=== PATIENT | female | born 1985 | race Caucasian/White ===

== ENCOUNTER 2022-03-17 15:27 | Outpatient (CLI) | payer OTHER ==
[2022-03-17 16:46] VITALS: BP 140/73; PULSE 94; RESP 18; TEMP 97.8
--- NOTE | 2022-04-10 11:23 | P.MSEPDOC ---
Presenting Problems - Arrival Data Date of Arrival on Unit: 03/17/22 Time of Arrival on Unit: 15:27 Mode of Transport: Ambulatory - Complaint OB-Reason for Admission/Chief Complaint: Rule Out PROM Comment: pt sent over from office to rule out PSROM. PT states, " I had a gush around 0445 this morning. Like i was peeing myself." PT reports fluid was clear. Medical History - Information : 4 Para: 3 Term: 3 : 0 Abortions: Spontaneous or Elective: 0 Number of Living Children: 3 - Gestational Age Gestational Age by JOSEE (wks/days): 34 Weeks and 2 Days Review of Systems - Review of Systems Constitutional: No problems Breast: No problems ENT: No problems Cardiovascular: No problems Respiratory: No problems Gastrointestinal: No problems Genitourinary: No problems Musculoskeletal: No problems Neurological: No problems Skin: No problems Vital Signs - Temperature Temperature: 97.8 F Temperature Source: Temporal Artery Scan - Pulse Right Pulse Rate: 94 Pulse Assessment Method: Pulse Oximetry - Respirations Respiratory Rate: 18 Oxygen Delivery Method: Room Air O2 Sat by Pulse Oximetry: 98 - Blood Pressure Right Arm Blood Pressure: 140/73 Blood Pressure Mean: 95 Blood Pressure Source: Automatic Cuff Medical Screen Scoring - Cervical Exam Membranes: Intact - Assessment - Baby A Baseline FHR: 135 Heart Rate - NICHD Category: Category I (Normal) NST: Reactive Physician Notification - Physician Notified Physician Notified Date: 03/17/22 Physician Notified Time: 16:23 Physician: Mario Alberto Benson New Order Received: Yes (discharge home.) Maternal Triage Index - Maternal Triage Index Presenting for scheduled procedure w/no complaint: No - Stat/Priority 1 Stat Priority 1: No - Urgent/Priority 2 Urgent Priority 2: Yes Provider Notified: Mario Alberto Benson Provider Notified Time: 16:23 Criteria Met for Priority 2: PT in office and reported experiencing a gush of fluid around 0445 this morning. Sent over from office to rule out PSROM. Disposition - Disposition OB Disposition: Discharge to home Discharge Date: 03/17/22 Discharge Time: 16:28 I agree with the RN Medical Screening Exam: Yes Physician's MSE Comment: I have neither seen nor examined the patient. Case reviewed; plan agreed upon as documented in EMR&OBIX.: Yes Diagnosis: RELATED CONDITIONS, UNSPECIFIED, THIRD TRIMESTER
== END 2022-03-17 16:28 | disposition home or self-care (01) ==
LOC: FBPOP 15:27
PROVIDERS: ATTEND Obstetrics & Gynecology
DX: O26.893 Other specified pregnancy related conditions, third trimester (principal); Z3A.34 34 weeks gestation of pregnancy; F17.200 Nicotine dependence, unspecified, uncomplicated; O99.333 Smoking (tobacco) complicating pregnancy, third trimester; Z88.0 Allergy status to penicillin; Z88.1 Allergy status to other antibiotic agents
CPT/HCPCS: 59025; 84112; 99213

== ENCOUNTER 2022-03-31 23:55 | Outpatient (CLI) | payer OTHER ==
[2022-04-01 01:04] LABS: Appearance,Urine Cloudy (Clear); Bacteria,Urine Occasional /hpf; Bilirubin,Urine Negative (Negative); Blood,Urine Negative (Negative); Color,Urine Light Yellow; Glucose,Urine (UA) Negative (Negative); Ketones,Urine Negative (Negative); Leukocyte Esterase,Urine Large (Negative); Mucus,Urine Rare /hpf; Nitrite,Urine Negative (Negative); Protein,Urine 1+ (Negative); Protein/Creatinine Ratio,Urine 1.333; RBC,Urine <1 /hpf (0-5); Squamous Epithelial Cell,Urine 7 /hpf (0-4); Urobilinogen,Urine <2.0 mg/dL (<2.0); WBC,Urine 3 /hpf (0-5)
[2022-04-01 01:41] LABS: Basophils # (A) 0.1 k/uL (0-0.2); Basophils % (A) 1 %; Eosinophils # (A) 0.2 k/uL (0-0.7); Eosinophils % (A) 1 %; HCT 34.6 % (34.0-46.0); HGB 12.1 gm/dL (11.4-16.0); Lymphocytes # (A) 2.3 k/uL (1.0-4.8); Lymphocytes % (A) 12 %; MCH 30.4 pg (25.0-35.0); Mean Platelet Volume 10.7; Monocytes % (A) 5 %; Neutrophils # (A) 14.7 k/uL (1.3-7.7); Neutrophils % (A) 79 %; Platelet Count 232 k/uL (150-450); RBC 3.98 m/uL (3.80-5.40); WBC 18.6 k/uL (3.8-10.6)
[2022-04-01 01:52] LABS: ALT 18 U/L (4-34); AST 22 U/L (14-36); African American GFR (CKD) >90 (>60 ml/min/1.73 sqM); Blood Urea Nitrogen 10 mg/dL (7-17); LDH 454 U/L (313-618); Non-African American GFR(CKD) >90 (>60 ml/min/1.73 sqM); Uric Acid 5.5 mg/dL (3.7-7.4)
[2022-04-01 02:35] VITALS: BP 176/78; PULSE 83; RESP 18; TEMP 97.5
--- NOTE | 2022-04-10 11:32 | P.MSEPDOC ---
Presenting Problems - Arrival Data Date of Arrival on Unit: 03/31/22 Time of Arrival on Unit: 23:55 Mode of Transport: Ambulatory - Complaint OB-Reason for Admission/Chief Complaint: PIH Medical History - Information : 4 Para: 3 Term: 3 : 0 Abortions: Spontaneous or Elective: 0 Number of Living Children: 3 - Gestational Age Gestational Age by JOSEE (wks/days): 36 Weeks and 3 Days - History Complications: GDM Comment: GDM-DIET CONTROLLED. Review of Systems - Review of Systems Constitutional: No problems Breast: No problems ENT: No problems Cardiovascular: No problems Respiratory: No problems Gastrointestinal: No problems Genitourinary: No problems Musculoskeletal: No problems Neurological: No problems Skin: No problems Vital Signs - Temperature Temperature: 97.5 F Temperature Source: Tympanic - Pulse Right Brachial Pulse Rate: 83 Pulse Assessment Method: Automatic Cuff - Respirations Respiratory Rate: 18 Oxygen Delivery Method: Room Air O2 Sat by Pulse Oximetry: 100 - Blood Pressure Right Arm Blood Pressure: 176/78 Blood Pressure Mean: 110 Blood Pressure Source: Automatic Cuff Medical Screen Scoring - Assessment - Baby A Baseline FHR: 140 Heart Rate - NICHD Category: Category I (Normal) NST: Reactive Physician Notification - Physician Notified Physician Notified Date: 04/01/22 Physician Notified Time: 00:40 Physician: Mario Alberto Benson New Order Received: Yes - Notification Comment Comment: Dr. Benson given report on pt. aware of pt c/o and hx. BPs readback. Cat. 1 fht, contractions irregular but not felt per pt. Bilateral ankle swelling noted 1+. pitting, bilat reflexes 1+, clonus absent. Pt c/o of h/a and right upper quadrant pain. Orders recieved to obtain [facility] labs and to call with results.Dr. Benson called and given update on pt. All lab results readback. BPs results readback. NST reactive. Orders recieved to d/c pt to home. Maternal Triage Index - Urgent/Priority 2 Urgent Priority 2: Yes Provider Notified: Mario Alberto Benson Provider Notified Time: 00:40 Criteria Met for Priority 2: Elevated BPs, increase in swelling, h/a. Disposition - Disposition OB Disposition: Discharge to home Discharge Date: 04/01/22 Discharge Time: 02:20 I agree with the RN Medical Screening Exam: Yes Case reviewed; plan agreed upon as documented in EMR&OBIX.: Yes Diagnosis: RELATED CONDITIONS, UNSPECIFIED, THIRD TRIMESTER
== END 2022-04-01 02:20 | disposition home or self-care (01) ==
LOC: FBPOP 23:55
PROVIDERS: ATTEND Obstetrics & Gynecology
DX: O26.93 Pregnancy related conditions, unspecified, third trimester (principal); O99.333 Smoking (tobacco) complicating pregnancy, third trimester; Z88.1 Allergy status to other antibiotic agents; Z88.0 Allergy status to penicillin; F17.200 Nicotine dependence, unspecified, uncomplicated; Z3A.36 36 weeks gestation of pregnancy
CPT/HCPCS: 59025; 81001; 82565; 82570; 83615; 84156; 84450; 84460; 84520; 84550; 85025; 99215

== ENCOUNTER 2022-04-08 11:50 | Inpatient (IN) | payer BC, OTHER ==
[2022-04-08 12:43] LABS: Glucose,Whole Blood 152 mg/dL (70-110)
[2022-04-08] MEDS ORDERED: CITRIC ACID-SODIUM CITRATE 15 ML CUP PO ONE (12:52)
[2022-04-08 13:29] LABS: Anisocytosis Slight; Basophils # (A) 0.1 k/uL (0-0.2); Basophils % (A) 0 %; Eosinophils # (A) 0.2 k/uL (0-0.7); Eosinophils % (A) 1 %; HCT 35.7 % (34.0-46.0); HGB 12.2 gm/dL (11.4-16.0); Lymphocytes # (A) 1.7 k/uL (1.0-4.8); Lymphocytes % (A) 11 %; MCH 29.8 pg (25.0-35.0); MCHC 34.1 g/dL (31.0-37.0); MCV 87.6 fL (80.0-100.0); Mean Platelet Volume 10.6; Monocytes # (A) 0.7 k/uL (0-1.0); Monocytes % (A) 5 %; Neutrophils % (A) 82 %; Platelet Count 245 k/uL (150-450); RBC 4.08 m/uL (3.80-5.40); WBC 15.8 k/uL (3.8-10.6)
[2022-04-08] MEDS: LACTATED RINGERS 1,000 ML IV SCH (13:56)
[2022-04-08 15:50] LABS: Glucose,Whole Blood 83 mg/dL (70-110)
--- NOTE | 2022-04-08 16:14 | P.HPOB ---
History of Present Illness H&P Date: 04/08/22 Chief Complaint: 37-3/7 weeks, previous section x3, spontaneous rupture the patient is a 36-year-old 4 para 3003 admitted at 37-3/7 weeks as established by 10 week ultrasound with documented spontaneous rupture of membranes. She carries a history of 3 previous sections and has requested repeat with tubal ligation having signed consent to that effect in the office. She additionally was diagnosed with gestational diabetes which was reportedly controlled well with diet. She falls into the category of advanced maternal age and declined trisomy testing. She additionally has been found to be rubella nonimmune and will receive the MMR vaccination . She did have reassuring testing on a weekly basis after 32 weeks during . Group B strep status is negative. On labor and delivery, all signs reassuring with a category 1 heart rate tracing. Obstetrical history: 4 para 3003 with 3 term sections. Current statistics are listed in history present illness. EDC of 04/26/2022 was established by a 10 week ultrasound.laboratory workup demonstrates a blood type of O+ with a negative antibody screen. Rubella status is nonimmune. The remainder of the laboratory workup was within normal limits. As the patient had late care, she did not have an early Glucola. Her second trimester Glucola was elevated and followed up by an abnormal three-hour glucose tolerance test. Group B strep status is negative. Gynecologic history: Unremarkable with no history of any infections to include STDs. Review of Systems review of systems is confined to history of present illness. Past Medical History Past Medical History: No Reported History History of Any Multi-Drug Resistant Organisms: None Reported Past Surgical History: Section, Ear Surgery Additional Past Surgical History / Comment(s): left ear surgery, Past Anesthesia/Blood Transfusion Reactions: No Reported Reaction Past Psychological History: No Psychological Hx Reported Smoking Status: Current every day smoker Past Alcohol Use History: None Reported Past Drug Use History: None Reported - Past Family History Father Family Medical History: No Reported History Medications and Allergies Home Medications Medication Instructions Recorded Confirmed Type Cetirizine HCl [Zyrtec] 10 mg PO DAILY 03/17/22 04/08/22 History Ferrous Sulfate [Iron] 325 mg PO DAILY 03/17/22 04/08/22 History Pnv 11/Iron Fum/Folic Acid/Om3 1 each PO DAILY 03/17/22 04/08/22 History [Virt-Fernando Dha Softgel] Allergies Allergy/AdvReac Type Severity Reaction Status Date / Time amoxicillin AdvReac Itching Verified 04/08/22 12:37 Penicillins AdvReac Itching Verified 04/08/22 12:37 Exam Vital Signs Temp Pulse Resp BP Pulse Ox 04/08/22 13:21 97.6 F 83 20 130/73 98 04/08/22 12:21 97.8 F 101 H 18 136/79 98 Intake and Output 04/08/22 04/08/22 04/08/22 06:59 14:59 22:59 Other: # Voids 1 Weight 104.326 kg in general, this is a well-developed, moderately obese white female in no acute distress. Her heart has a regular rhythm and rate without murmur. Her lungs are clear to auscultation bilaterally in all cervantes. Her abdomen is gravid, nondistended, has normal active bowel sounds, soft, nontender, and without any palpable masses aside from uterine fundus. Her extremities are without any cyanosis, clubbing, or significant edema and are nontender to palpation bilaterally. Digital cervical examination is deferred. Results Result Diagrams: 04/08/22 13:20 Abnormal Lab Results - Last 24 Hours (Table) 04/08/22 04/08/22 Range/Units 12:42 13:20 WBC 15.8 H (3.8-10.6) k/uL RDW 16.0 H (11.5-15.5) % Neutrophils # 13.0 H (1.3-7.7) k/uL POC Glucose (mg/dL) 152 H (70-110) mg/dL Assessment and Plan (1) 37 or more weeks gestation of Current Visit: Yes Status: Acute Code(s): FXB6411 - SNOMED Code(s): 90718129 (2) Previous section Current Visit: Yes Status: Acute Code(s): Z98.891 - HISTORY OF UTERINE SCAR FROM PREVIOUS SURGERY SNOMED Code(s): 269205822 (3) Gestational diabetes Current Visit: Yes Status: Acute Code(s): O24.419 - GESTATIONAL DIABETES MELLITUS IN , UNSP CONTROL SNOMED Code(s): 50893829 (4) Family planning Current Visit: Yes Status: Acute Code(s): Z30.09 - ENCOUNTER FOR OTH GENERAL CNSL AND ADVICE ON CONTRACEPTION SNOMED Code(s): 523567049 Plan: the patient is admitted for repeat low transverse section with intraoperative bilateral tubal occlusion using Filshie clips. The risks and co mplications of these procedures of been thoroughly discussed and she has understood and agreed to proceed.
[2022-04-08] MEDS ORDERED: OXYTOCIN 30 UNITS/500 ML NS BAG IV ONE (16:18)
[2022-04-08] MEDS ORDERED: MORPHINE SULFATE (PF) 0.3 MG/0.3 ML SYR ONE (16:18)
[2022-04-08] MEDS ORDERED: ONDANSETRON 4 MG/2 ML VIAL ONE (16:18)
[2022-04-08] MEDS ORDERED: ePHEDrine 50 MG/ML 1 ML VIAL ONE (16:18)
[2022-04-08] MEDS ORDERED: NALBUPHINE 10 MG/ML (1 ML AMP) ONE (16:18)
[2022-04-08] MEDS ORDERED: KETOROLAC 15 MG/ML 1 ML VIAL ONE (16:18)
[2022-04-08] MEDS ORDERED: NALOXONE 0.4 MG/ML 1 ML VIAL IV PRN (17:20)
[2022-04-08] MEDS ORDERED: ZOLPIDEM 5 MG TAB PO PRN (17:20)
[2022-04-08] MEDS ORDERED: LANOLIN CREAM 5 GM TUBE TOPICAL PRN (17:20)
[2022-04-08] MEDS ORDERED: METOCLOPRAMIDE 5 MG/ML 2 ML VIAL IVP PRN (17:20)
[2022-04-08] MEDS ORDERED: ONDANSETRON 4 MG/2 ML VIAL IVP PRN (17:20)
[2022-04-08] MEDS ORDERED: KETOROLAC 15 MG/ML 1 ML VIAL IVP PRN (17:20)
[2022-04-08] MEDS ORDERED: diphenhydrAMINE 25 MG CAP PO PRN (17:20)
[2022-04-08] MEDS ORDERED: diphenhydrAMINE 50 MG/ML 1 ML VIAL IVP PRN ×2 (17:20)
[2022-04-08] MEDS ORDERED: diphenhydrAMINE 50 MG CAP PO PRN (17:20)
[2022-04-08] MEDS ORDERED: SIMETHICONE 80 MG CHEWABLE PO PRN (17:20)
[2022-04-08] MEDS ORDERED: OXYTOCIN 30 UNITS/500 ML NS 30 UNIT in SALINE 1 500ML.BAG IV SCH (17:30)
--- NOTE | 2022-04-08 17:30 | P.OP ---
Date of Procedure: 04/08/22 Preoperative Diagnosis: #1. 37-3/7 weeks, previous section 3 #2. Documented spontaneous rupture of membranes #3. Gestational diabetes #4. Undesired fertility Postoperative Diagnosis: same Procedure(s) Performed: #1. Repeat low transverse section #2. Intraoperative bilateral tubal occlusion with Filshie clips Anesthesia: spinal Surgeon: Mario Alberto Benson Inspector [employer] #1: Tori Cabrera Estimated Blood Loss (ml): 350 IV fluids (ml): 700 Urine output (ml): 150 Pathology: other (placenta) Condition: stable Disposition: floor Operative Findings: preoperatively, the patient had signed consent for repeat section with intraoperative tubal occlusion using Filshie clips. She presented to labor and delivery today and was found with documented spontaneous rupture of membranes. She was not in labor at that time. She was ultimately taken to the operating room where she underwent repeat low transverse section with bilateral tubal occlusion and uncomplicated fashion. She was delivered of a viable 6 lbs. 6 oz. baby girl with Apgars of 9 at 1 minute and 9 at 5 minutes in the double footling breech position. Standard breech maneuvers were used. The placenta was delivered manually, intact, and grossly normal with a grossly normal three- vessel cord that was noted to have a true knot. The uterus, tubes, and ovaries were entirely normal to inspection though there was some filmy adhesions in the pelvis from the omentum primarily to the anterior abdominal wall. The fascia and muscle layers were densely scarred and somewhat difficult to develop. Description of Procedure: the patient was prepped and draped in usual fashion after spinal anesthesia was administered by the anesthesiologist. A Pfannenstiel incision was made through pre-existing scar and extended into the abdominal cavity with some difficulty primarily at the level of the fascia and muscles which were densely adherent and difficult separate. There were some omental adhesions noted in the midline to the anterior abdominal wall which were lysed sharply using the Bovie. Once adequate space had been created, the bladder blade was placed and the bladder peritoneum elevated, incised, and reflected distally. A roughly 2 cm incision was made in the transverse plane of the lower uterine segment to enter the uterus at which time clear fluid was again noted. The incision was extended in both directions using the bandage scissors. The lower uterine segment was significantly thick as no labor had started. The feet were encountered in the field and both were grasped and brought through the incision. At the level of the hips standard breech maneuvers were utilized to deliver the arms and shoulders followed by the head. She was delivered of a viable 6 lbs. 6 oz. baby girl with Apgars of 9 at 1 minute and 9 at 5 minutes and double footling breech position as noted above. The cord was doubly clamped, cut, and the infant passed for resuscitative measures with weight and Apgars as noted above. Cord blood was collected per protocol. The placenta was delivered manually, intact, and grossly normal with a grossly normal three-vessel cord the there was a true knot in it. The uterus was exteriorized and the interior cavity of the uterus swept of any remaining placental or membranous fragments. The margins of the incision were grasped with Charles clamps and the incision was closed in a single running locking stitch of 0 chromic catgut from margin to margin. The posterior cul-de-sac was suctioned with a guard followed by laparotomy sponge. After re-establishing the patient's desire for permanent sterilization, a Filshie clip was applied to each fallopian tube in the isthmic portion approximately 2-3 cm from the cornu on each side. The uterus was replaced within the abdominal cavity and the gutters swept of any remaining blood, fluid, or clot. I one small point of bleeding in the right middle portion of the incision was made hemostatic with a [id number] stitch of 0 chromic catgut. The parietal peritoneum could not easily be reapproximated given the degree of scarring at the level of the fascia and muscles. The muscles were examined and made hemostatic with the Bovie. The fascia was closed with 2 running stitches of 0 Vicryl proceeding from the lateral margins to the midpoint. The subcutaneous tissues were irrigated, made hemostatic with the Bovie, and reapproximated with a running stitch of 30 plain catgut. The skin was retracted with a running subcuticular stitch of 4-0 Vicryl followed by half-inch Steri- Strips placed with Mastisol. Estimated blood loss for the case was approximately 350 mL. There were no complications. All sponge, instrument, needle counts were correct. The patient tolerated the procedure well and proceeded to the recovery room in stable condition. Both mother and are resting comfortably in recovery.
[2022-04-08] MEDS: SENNOSIDES-DOCUSATE SODIUM 1 EACH TAB PO SCH (20:51)
[2022-04-08] MEDS: ACETAMINOPHEN TAB 500 MG TAB PO SCH (20:53)
[2022-04-08] MEDS ORDERED: MEASLES-MUMPS-RUBELLA VACC/PF 12,500 UNIT/0.5 ML VIAL SQ ONE (21:46)
[2022-04-09] MEDS: IBUPROFEN 600 MG TAB PO SCH ×4 (00:24→20:17)
[2022-04-09] MEDS: LACTATED RINGERS 1,000 ML IV SCH ×3 (00:35→20:17)
[2022-04-09] MEDS: ACETAMINOPHEN TAB 500 MG TAB PO SCH ×3 (04:52→20:17)
[2022-04-09 05:41] LABS: Anisocytosis Slight; Basophils % (A) 0 %; Eosinophils # (A) 0.1 k/uL (0-0.7); Eosinophils % (A) 1 %; HCT 25.8 % (34.0-46.0); Lymphocytes % (A) 13 %; MCH 30.9 pg (25.0-35.0); MCHC 34.4 g/dL (31.0-37.0); Mean Platelet Volume 10.9; Monocytes # (A) 0.9 k/uL (0-1.0); Monocytes % (A) 6 %; Neutrophils # (A) 12.5 k/uL (1.3-7.7); Neutrophils % (A) 79 %; Platelet Count 206 k/uL (150-450); RBC 2.87 m/uL (3.80-5.40); RDW 16.5 % (11.5-15.5); WBC 15.8 k/uL (3.8-10.6)
[2022-04-09 05:45] LABS: HGB 8.9 gm/dL (11.4-16.0)
--- NOTE | 2022-04-09 07:55 | P.PN ---
Progress Note - Text Progress Note Date: 04/09/22 (062) Anesthesia Postop day 1 Subjective: Status Post section with Duramorph. Patient seen and examined. Doing well without complaint. VAS 5/10. No nausea or vomiting. Mild pruritus tolerable.. Afebrile. Gross lower extremity strength intact. Without apparent anesthetic complications. Objective: Vital signs reviewed Heart: Regular Rate Lungs: Good chest excursion Abdomen: Appears nondistended Assessment: Status post with Duramorph postop day 1 Plan: Continue current care with your medical management. Anticipated and the Duramorph around midnight tonight, you may see increased pain needs around this time.
[2022-04-09] MEDS: SENNOSIDES-DOCUSATE SODIUM 1 EACH TAB PO SCH ×2 (08:14→20:09)
--- NOTE | 2022-04-09 08:42 | P.PNOBGPC ---
Subjective - Subjective Patient reports: Reports appetite normal, Reports voiding normally, Reports pain well controlled, Reports ambulating normally : doing well Objective - Vital Signs Latest vital signs: Vital Signs Temp Pulse Resp BP Pulse Ox 04/09/22 07:40 97.9 F 92 16 104/68 95 04/09/22 04:00 97.9 F 100 16 111/72 97 04/09/22 00:00 98.2 F 104 H 16 104/69 96 04/08/22 20:30 97.6 F 112 H 16 110/53 98 04/08/22 19:22 97.2 F L 93 17 129/68 97 04/08/22 18:52 89 17 121/57 97 04/08/22 18:22 97.3 F L 87 16 130/62 98 04/08/22 18:07 81 17 128/66 97 04/08/22 17:52 84 17 133/72 97 04/08/22 17:37 82 17 138/72 97 04/08/22 17:22 97.1 F L 83 17 114/57 97 04/08/22 13:21 97.6 F 83 20 130/73 98 04/08/22 12:21 97.8 F 101 H 18 136/79 98 Intake and Output 04/08/22 04/09/22 04/09/22 22:59 06:59 14:59 Intake Total 750 Output Total 904 150 100 Balance -154 -150 -100 Intake: IV 750 Output: Urine 500 150 100 Uretheral (Yuan) 150 Emesis 100 Output, Quantitative 304 Blood Loss Other: Voiding Method Indwelling Catheter # Voids 1 - Exam Extremities: Present: normal Abdomen: Present: normal appearance, soft. Absent: distention, tenderness Incision: Present: normal, dry, intact Uterus: Present: normal, firm (uterine fundus is tonic and a peripherally tender just above the umbilicus.) - Labs Labs: Abnormal Lab Results - Last 24 Hours (Table) 04/08/22 04/08/22 04/09/22 Range/Units 12:42 13:20 05:06 WBC 15.8 H 15.8 H (3.8-10.6) k/uL RBC 2.87 L (3.80-5.40) m/uL Hgb 8.9 L D (11.4-16.0) gm/dL Hct 25.8 L (34.0-46.0) % RDW 16.0 H 16.5 H (11.5-15.5) % Neutrophils # 13.0 H 12.5 H (1.3-7.7) k/uL POC Glucose (mg/dL) 152 H (70-110) mg/dL Assessment and Plan (1) 37 or more weeks gestation of Current Visit: Yes Status: Acute Code(s): [id number] - SNOMED Code(s): 60362766 (2) Previous section Current Visit: Yes Status: Acute Code(s): Z98.891 - HISTORY OF UTERINE SCAR FROM PREVIOUS SURGERY SNOMED Code(s): 462113019 (3) Gestational diabetes Current Visit: Yes Status: Acute Code(s): O24.419 - GESTATIONAL DIABETES MELLITUS IN , UNSP CONTROL SNOMED Code(s): 67469440 (4) Family planning Current Visit: Yes Status: Acute Code(s): Z30.09 - ENCOUNTER FOR OT GENERAL CNSL AND ADVICE ON CONTRACEPTION SNOMED Code(s): 073830612 (5) Status post section Current Visit: Yes Status: Acute Code(s): Z98.891 - HISTORY OF UTERINE SCAR FROM PREVIOUS SURGERY SNOMED Code(s): 241652272 Plan: continue routine and postoperative care. I have encouraged the patient debbie in the hallways routinely. I would anticipate possible discharge tomorrow pending no further complications of any kind.
[2022-04-10] MEDS: SENNOSIDES-DOCUSATE SODIUM 1 EACH TAB PO SCH (07:21)
[2022-04-10] MEDS: IBUPROFEN 600 MG TAB PO SCH (07:22)
[2022-04-10 08:47] VITALS: BP 157/81; PULSE 95; RESP 16; TEMP 98.4
--- NOTE | 2022-04-10 11:21 | P.DS ---
Providers Date of admission: 04/08/22 12:38 Expected date of discharge: 04/10/22 Attending physician: Mario Alberto Benson Primary care physician: Stated None - Discharge Diagnosis(es) (1) 37 or more weeks gestation of Current Visit: Yes Status: Acute (2) Previous section Current Visit: Yes Status: Acute (3) Gestational diabetes Current Visit: Yes Status: Acute (4) Family planning Current Visit: Yes Status: Acute (5) Status post section Current Visit: Yes Status: Acute Hospital Course: as the patient is a 36-year-old 4 para 3003 admitted at 37-3/7 weeks by good dating parameters. She is admitted with documented spontaneous rupture membranes and a previous history of section 3. She additionally has requested intraoperative bilateral tubal occlusion during her repeat section. Her was complicated by advanced maternal age though she declined any trisomy testing. She also was diagnosed with gestational diabetes which was reportedly well controlled with diet alone. She also is known to be rubella nonimmune. On labor and delivery, she was taken the operating room where she was delivered of a viable 6 lbs. 6 oz. baby girl with Apgars of 9 at 1 minute and 9 at 5 minutes in the double footling presentation. Her postoperative and courses were unremarkable with vital signs or any stable and her temperature was afebrile throughout. She was deemed stable for discharge on and postoperative day #2 and was discharged home to follow-up in the office in 2 weeks for an incision check and 6 weeks routinely. Discharge instructions included calling for any significantly increased bleeding or foul-smelling lochia, significantly increased fever or abdominal pain, perineal complaints, breast complaints, incisional complaints, or anything else that concerned her. She was additionally instructed to have nothing in the vagina for at least 6 weeks time to include intercourse. She was instructed to do no heavy lifting over the same period of time. She was last instructed to do no driving until off of all pain medications or 2 weeks' time, whichever came first. She understood her instructions and agrees to follow up as noted above. Discharge medications included continued vitamins as she has opted to breast-feed. Also asked her to take some iron as she is somewhat anemic following surgery. She was provided a prescription for Tylenol No. 3, 1-2 by mouth every 6 hours when necessary pain, #20 dispensed with no refills. Maternal blood type is O+ and rubella status is nonimmune. She therefore was to receive the MMR vaccine prior to discharge. Discharge hemoglobin and hematocrit were 8.9 and 25.8 respectively. Procedures: Umber 1. Repeat low transverse section #2. Intraoperative bilateral tubal occlusion with Filshie clips Patient Condition at Discharge: Stable Plan - Discharge Summary New Discharge Prescriptions: No Action Pnv 11/Iron Fum/Folic Acid/Om3 [Virt-Fernando Dha Softgel] 1 each PO DAILY Ferrous Sulfate [Iron] 325 mg PO DAILY Cetirizine HCl [Zyrtec] 10 mg PO DAILY Discharge Medication List Cetirizine HCl [Zyrtec] 10 mg PO DAILY 03/17/22 [History] Ferrous Sulfate [Iron] 325 mg PO DAILY 03/17/22 [History] Pnv 11/Iron Fum/Folic Acid/Om3 [Virt-Fernando Dha Softgel] 1 each PO DAILY 03/17/22 [History] Follow up Appointment(s)/Referral(s): Mario Alberto Benson MD [STAFF PHYSICIAN] - 2 Weeks Discharge Disposition: HOME SELF-CARE
--- NOTE | 2022-04-10 11:33 | P.MSEPDOC ---
Presenting Problems - Arrival Data Date of Arrival on Unit: 04/08/22 Time of Arrival on Unit: 12:45 Mode of Transport: Wheelchair - Complaint OB-Reason for Admission/Chief Complaint: Rule Out SROM Comment: rule out SROM. pt first says large gush of fluid at 1100 today then states she was "wet on and off yesterday and through the night" Medical History - Information : 4 Para: 3 Term: 3 : 0 Abortions: Spontaneous or Elective: 0 Number of Living Children: 1 - Gestational Age Gestational Age by JOSEE (wks/days): 37 Weeks and 3 Days - History Complications: GDM Comment: pt states she is "diet controlled GDM" but then states she doesn't remember when she checked her sugar last and that they were running "on the high side" Review of Systems - Review of Systems Constitutional: No problems Breast: No problems ENT: No problems Cardiovascular: No problems Respiratory: No problems Gastrointestinal: No problems Genitourinary: No problems Musculoskeletal: No problems Neurological: No problems Skin: No problems Vital Signs - Temperature Temperature: 98.4 F Temperature Source: Oral - Pulse Right Brachial Pulse Rate: 95 Pulse Assessment Method: Automatic Cuff - Respirations Respiratory Rate: 16 Oxygen Delivery Method: Room Air O2 Sat by Pulse Oximetry: 97 - Blood Pressure Right Arm Blood Pressure: 157/81 Blood Pressure Mean: 106 Blood Pressure Source: Automatic Cuff Medical Screen Scoring - Cervical Exam Dilation (cm): 0 Effacement (%): 0 Station: -4 Membranes: Ruptured - Assessment - Baby A Baseline FHR: 160 Heart Rate - NICHD Category: Category I (Normal) NST: Reactive Physician Notification - Physician Notified Physician Notified Date: 04/08/22 Physician Notified Time: 12:45 Physician: Mario Alberto Benson New Order Received: Yes (admit pt for repeat CS) Maternal Triage Index - Maternal Triage Index Presenting for scheduled procedure w/no complaint: No - Stat/Priority 1 Stat Priority 1: No - Urgent/Priority 2 Urgent Priority 2: Yes Provider Notified: Mario Alberto Benson Provider Notified Time: 12:45 Criteria Met for Priority 2: 37 3/7 gestation, SROM, planned repeat C/S Disposition - Disposition OB Disposition: Admit, LDRP Suite I agree with the RN Medical Screening Exam: Yes Case reviewed; plan agreed upon as documented in EMR&OBIX.: Yes Diagnosis: ENCOUNTER FOR FULL-TERM UNCOMPLICATED DELIVERY
== END 2022-04-10 15:10 | disposition home or self-care (01) | DRG 785 ==
LOC: FBPOP 11:50 → 4FBP 12:38
PROVIDERS: ADMIT Obstetrics & Gynecology; ATTEND Obstetrics & Gynecology
PROC: 0UL70CZ Occlusion of Bilateral Fallopian Tubes with Extraluminal Device, Open Approach (ICD-10-PCS; principal; 2022-04-08 16:30)
PROC: 10D00Z1 Extraction of Products of Conception, Low, Open Approach (ICD-10-PCS; principal; 2022-04-08 16:30)
DX: O34.211 Maternal care for low transverse scar from previous cesarean delivery (principal); O99.02 Anemia complicating childbirth; O99.334 Smoking (tobacco) complicating childbirth; O24.420 Gestational diabetes mellitus in childbirth, diet controlled; Z37.0 Single live birth; F17.210 Nicotine dependence, cigarettes, uncomplicated; L29.9 Pruritus, unspecified; N73.6 Female pelvic peritoneal adhesions (postinfective); O32.8XX0 Maternal care for other malpresentation of fetus, not applicable or unspecified; Z30.2 Encounter for sterilization; Z3A.37 37 weeks gestation of pregnancy; Z28.310 Unvaccinated for COVID-19; Z28.21 Immunization not carried out because of patient refusal
CPT/HCPCS: 59025; 83036; 84112; 85025; 86850; 86900; 86901; 90707; 99213